=== PATIENT | male | born 1975 | race Caucasian/White ===

== ENCOUNTER 2017-09-30 12:44 | Observation (INO) | payer BC ==
--- NOTE | 2017-09-30 13:20 | ER ---
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 Transition of care: patient was not received from another setting of care. Onset of symptoms was September 30, 2017. Care prior to arrival: None. 12:48 Method Of Arrival: Ambulatory 12:48 Acuity: JOSTIN 3 hj Triage Assessment: 12:51 General: Appears in no apparent distress. uncomfortable, Behavior is calm, cooperative, hj appropriate for age. Pain: Complains of pain in anterior aspect of left upper chest Pain radiates to left arm. Cardiovascular: Reports chest pain, Capillary refill < 3 seconds Patient's skin is warm and dry. Historical: - Allergies: 12:51 No Known Allergies; hj - Home Meds: 12:51 None [Active]; hj - PMHx: 12:51 None; hj - PSHx: 12:51 finger surgery; hj - Immunization history:: Adult Immunizations up to date. - Family history:: not pertinent. - Social history:: Smoking status: Patient/guardian denies using tobacco, never smoked. Screenin:18 Abuse screen: Denies threats or abuse. Nutritional screening: No deficits noted. tl3 Tuberculosis screening: No symptoms or risk factors identified. Fall Risk None identified. Assessment: 12:52 Pain: Pain began 1 day ago. hj 13:05 Reassessment: pt to rm 24, Dr Abel at bedside for assessment. tl3 13:30 General: Appears in no apparent distress. comfortable, slender, well groomed, well tl3 developed, well nourished, Behavior is calm, cooperative, appropriate for age. Pain: Complains of pain in left clavicle and left arm and chest and anterior aspect of left upper chest Pain currently is 6 out of 10 on a pain scale. Pain: Pain Pain began 1 day ago. Pain: Complains of pain in left arm and anterior aspect of left upper chest Pain currently is 6 out of 10 on a pain scale. Pain began 3 weeks ago. Neuro: No deficits noted. Level of Consciousness is awake, alert, obeys commands, Oriented to person, place, time, situation. Neuro: Cardiovascular: Heart tones S1 S2 present Capillary refill < 3 seconds in bilateral fingers. Respiratory: Airway is patent Trachea midline Breath sounds are clear bilaterally. GI: No signs and/or symptoms were reported involving the gastrointestinal system. : No signs and/or symptoms were reported regarding the genitourinary system. EENT: No signs and/or symptoms were reported regarding the EENT system. Derm: No signs and/or symptoms reported regarding the dermatologic system. 16:50 Reassessment: Patient appears in no apparent distress at this time. No changes from tl3 previously documented assessment. Patient and/or family updated on plan of care and expected duration. Pain level reassessed. Patient is alert, oriented x 3, equal unlabored respirations, skin warm/dry/pink. Vital Signs: 12:52 BP 152 / 93; Pulse 56; Resp 18; Temp 97.9(TE); Pulse Ox 98% on R/A; Weight 104.33 kg; hj Height 5 ft. 11 in. (180.34 cm); Pain 2/10; 13:30 BP 140 / 90; Pulse 71; Resp 16; Pulse Ox 100% on R/A; tl3 14:18 BP 134 / 97; Pulse 62; Resp 18; Pulse Ox 100% on R/A; tl3 16:50 BP 137 / 93; Pulse 67; Resp 18; Pulse Ox 96% ; tl3 12:52 Body Mass Index 32.08 (104.33 kg, 180.34 cm) ED Course: 12:48 Patient arrived in ED. mr 12:51 Triage completed. hj 12:52 Arm band placed on left wrist. hj 12:52 Patient maintains SpO2 saturation greater than 95% on room air. hj 12:58 Rian Abel MD is Attending Physician. job 13:04 Misa Hinkle, POLLY is Primary Nurse. tl3 13:09 EKG done, by instructional design technologist. reviewed by Rian Abel MD. at1 13:19 Cyn Riddle MD is Hospitalizing Provider. job 13:29 XRAY Chest (1 view) In Process Unspecified. EDMS 13:30 No apparent distress. Awaiting bed assignment. tl3 13:30 Initial lab(s) drawn, by me, sent to lab. Inserted saline lock: 22 gauge in right tl3 antecubital area, using aseptic technique. Blood collected. 13:32 X-ray completed. Portable x-ray completed in exam room. Patient tolerated procedure mh1 well. 14:18 Patient has correct armband on for positive identification. Placed in gown. Bed in low tl3 position. Call light in reach. Side rails up X 1. Pulse ox on. NIBP on. Warm blanket given. 14:36 Echo with Doppler Sent. tl3 15:11 No provider procedures requiring assistance completed. tl3 15:25 Echocardiogram with Doppler done by calibration technician. tc 16:50 Inserted Patient admitted, IV remains in place. tl3 Administered Medications: 13:30 Drug: Aspirin Chewable Tablet 324 mg Route: PO; tl3 17:14 Follow up: Response: No adverse reaction tl3 13:30 Drug: Lisinopril 10 mg Route: PO; tl3 17:14 Follow up: Response: No adverse reaction tl3 15:27 Drug: NS 0.9% 1000 ml Route: IV; Rate: 125 ml/hr; Site: right antecubital; Delivery: tl3 Primary tubing; 15:28 Drug: Lovenox 1 mg/kg Route: Sub-Q; Site: abdomen; tl3 17:15 Follow up: Response: No adverse reaction tl3 15:28 Drug: Pepcid 20 mg Route: IVP; Infused Over: 2 mins; Site: right antecubital; tl3 17:15 Follow up: Response: No adverse reaction tl3 Outcome: 13:19 Decision to Hospitalize by Provider. job 16:50 Admitted to Tele accompanied by tech, room 401, with chart, Report called to POLLY Gongora tl3 17:14 Condition: stable tl3 17:16 Patient left the ED. tl3 Signatures: Dispatcher [employer] EDMS Rian Abel MD MD cha Rivera, Maria Cayetano Uriasha mh1 Chrissie rome, curator herbarium EKG Tat1 Janette Mays, curator herbarium EKG Ttc Dani, Rolan, RN RN hj [place], Misa, RN RN tl3 Corrections: (The following items were deleted from the chart) 12:54 12:52 Pulse 56bpm; Resp 18bpm; Pulse Ox 98% RA; Temp 97.9F Temporal; 104.33 kg; Height hj 5 ft. 11 in.; BMI: 32.0; Pain 2/10; hj 14:34 14:18 Immunization history: Adult Immunizations up to date, tl3 tl3 14:34 14:18 Social history: Smoking status: Patient uses tobacco products, smokes one pack tl3 cigarettes per day. Patient uses alcohol, states that he is trying to quit. tl3 14:34 14:18 General: Appears distressed, uncomfortable, slender, well groomed, well tl3 developed, Behavior is calm, cooperative, appropriate for age, tl3 14:34 14:18 Pain: Complains of pain in left breast and left clavicle and left arm and chest tl3 and anterior aspect of left upper chest Pain currently is 10 out of 10 on a pain scale. Quality of pain is described as sharp, tl3 14:34 14:18 Neuro: Level of Consciousness is awake, alert, obeys commands, Oriented to tl3 person, place, time, situation, Appropriate for age tl3 14:34 14:18 Cardiovascular: Heart tones S1 S2 present Capillary refill < 3 seconds in tl3 bilateral fingers tl3 14:34 14:18 Pain: tl3 tl3 14:34 14:18 Respiratory: Airway is patent Trachea midline Respiratory effort is even, tl3 unlabored, Respiratory pattern is regular, symmetrical, Breath sounds are clear bilaterally. tl3 14:34 14:18 GI: Bowel sounds present X 4 quads. hyperactive in right upper quadrant, left tl3 upper quadrant, right lower quadrant and left lower quadrant tl3 14:34 14:18 : No signs and/or symptoms were reported regarding the genitourinary system. tl3tl3 14:34 14:18 EENT: No signs and/or symptoms were reported regarding the EENT system. tl3 tl3 14:34 14:18 Derm: No signs and/or symptoms reported regarding the dermatologic system. tl3 tl3 14:35 14:18 No provider procedures requiring assistance completed. tl3 tl3 14:35 14:18 Inserted saline lock: 22 gauge in right antecubital area, using aseptic tl3 technique. tl3 14:35 14:18 Patient maintains SpO2 saturation greater than 95% on room air. tl3 tl3
--- NOTE | 2017-09-30 13:20 | EDPHYS ---
Physician Documentation [facility] Name: Ralf Crowley Age: 41 yrs Sex: Male : 1975 Arrival Date: 09/30/2017 Time: 12:48 Bed 24 Private MD: ED Physician Rian Abel HPI: 09/30 13:15 This 41 yrs old Male presents to ER via Ambulatory with complaints of Chest job Pain, Arm Pain. 13:15 The patient or guardian reports chest pain that is located primarily in the substernal job area, anterior chest wall. The pain radiates to the left shoulder. Associated signs and symptoms: The patient has no apparent associated signs or symptoms. The chest pain is described as a pressure. Modifying factors: The symptoms are alleviated by nothing. Severity of pain: At its worst the pain was mild moderate in the emergency department the pain is unchanged. The patient has not experienced similar symptoms in the past. Historical: - Allergies: 12:51 No Known Allergies; hj - Home Meds: 12:51 None [Active]; hj - PMHx: 12:51 None; hj - PSHx: 12:51 finger surgery; hj - Immunization history:: Adult Immunizations up to date. - Family history:: not pertinent. - Social history:: Smoking status: Patient/guardian denies using tobacco, never smoked. ROS: 13:15 Constitutional: Negative for fever, chills, and weight loss, Eyes: Negative for injury, job pain, redness, and discharge, ENT: Negative for injury, pain, and discharge, Neck: Negative for injury, pain, and swelling, Respiratory: Negative for shortness of breath, cough, wheezing, and pleuritic chest pain, Abdomen/GI: Negative for abdominal pain, nausea, vomiting, diarrhea, and constipation, Back: Negative for injury and pain, : Negative for injury, bleeding, discharge, and swelling, MS/Extremity: Negative for injury and deformity, Skin: Negative for injury, rash, and discoloration, Neuro: Negative for headache, weakness, numbness, tingling, and seizure, Psych: Negative for depression, anxiety, suicide ideation, homicidal ideation, and hallucinations, Allergy/Immunology: Negative for hives, rash, and allergies, Endocrine: Negative for neck swelling, polydipsia, polyuria, polyphagia, and marked weight changes, Hematologic/Lymphatic: Negative for swollen nodes, abnormal bleeding, and unusual bruising. 13:15 Cardiovascular: Positive for chest pain, of the left clavicle, anterior aspect of left upper chest and left breast. Exam: 13:15 Constitutional: This is a well developed, well nourished patient who is awake, alert, job and in no acute distress. Head/Face: Normocephalic, atraumatic. Eyes: Pupils equal round and reactive to light, extra-ocular motions intact. Lids and lashes normal. Conjunctiva and sclera are non-icteric and not injected. Cornea within normal limits. Periorbital areas with no swelling, redness, or edema. ENT: Nares patent. No nasal discharge, no septal abnormalities noted. Tympanic membranes are normal and external auditory canals are clear. Oropharynx with no redness, swelling, or masses, exudates, or evidence of obstruction, uvula midline. Mucous membranes moist. Neck: Trachea midline, no thyromegaly or masses palpated, and no cervical lymphadenopathy. Supple, full range of motion without nuchal rigidity, or vertebral point tenderness. No Meningismus. Chest/axilla: Normal chest wall appearance and motion. Nontender with no deformity. No lesions are appreciated. Cardiovascular: Regular rate and rhythm with a normal S1 and S2. No gallops, murmurs, or rubs. Normal PMI, no JVD. No pulse deficits. Respiratory: Lungs have equal breath sounds bilaterally, clear to auscultation and percussion. No rales, rhonchi or wheezes noted. No increased work of breathing, no retractions or nasal flaring. Abdomen/GI: Soft, non-tender, with normal bowel sounds. No distension or tympany. No guarding or rebound. No evidence of tenderness throughout. Back: No spinal tenderness. No costovertebral tenderness. Full range of motion. Male : Normal genitalia with no discharge or lesions. Skin: Warm, dry with normal turgor. Normal color with no rashes, no lesions, and no evidence of cellulitis. Neuro: Awake and alert, GCS 15, oriented to person, place, time, and situation. Cranial nerves II-XII grossly intact. Motor strength 5/5 in all extremities. Sensory grossly intact. Cerebellar exam normal. Normal gait. Psych: Awake, alert, with orientation to person, place and time. Behavior, mood, and affect are within normal limits. Vital Signs: 12:52 BP 152 / 93; Pulse 56; Resp 18; Temp 97.9(TE); Pulse Ox 98% on R/A; Weight 104.33 kg; hj Height 5 ft. 11 in. (180.34 cm); Pain 2/10; 13:30 BP 140 / 90; Pulse 71; Resp 16; Pulse Ox 100% on R/A; tl3 14:18 BP 134 / 97; Pulse 62; Resp 18; Pulse Ox 100% on R/A; tl3 16:50 BP 137 / 93; Pulse 67; Resp 18; Pulse Ox 96% ; tl3 12:52 Body Mass Index 32.08 (104.33 kg, 180.34 cm) hj MDM: 12:58 Patient medically screened. [facility] 13:29 Data reviewed: vital signs, nurses notes, lab test result(s), EKG, radiologic studies. [facility] 09/30 13:15 Order name: Basic Metabolic Panel [facility] 09/30 13:15 Order name: BNP [facility] 09/30 13:15 Order name: CBC with Diff [facility] 09/30 13:15 Order name: Ckmb [facility] 09/30 13:15 Order name: CPK [facility] 09/30 13:15 Order name: LFT's [facility] 09/30 13:15 Order name: Magnesium [facility] 09/30 13:15 Order name: PT-INR [facility] 09/30 13:15 Order name: Ptt, Activated [facility] 09/30 13:15 Order name: Troponin (emerg Dept Use Only) [facility] 09/30 13:15 Order name: XRAY Chest (1 view) [facility] 09/30 13:15 Order name: D-Dimer [facility] 09/30 13:15 Order name: Lipase [facility] 09/30 16:32 Order name: Thyroid Stimulating Hormone [facility] 09/30 12:55 Order name: EKG; Complete Time: 12:55 09/30 13:15 Order name: Cardiac monitoring; Complete Time: 14:36 [facility] 09/30 13:15 Order name: EKG - Nurse/Tech; Complete Time: 14:36 [facility] 09/30 13:15 Order name: IV Saline Lock; Complete Time: 14:36 [facility] 09/30 13:15 Order name: Labs collected and sent; Complete Time: 14:37 [facility] 09/30 13:15 Order name: O2 Per Protocol; Complete Time: 14:37 [facility] 09/30 13:15 Order name: O2 Sat Monitoring; Complete Time: 14:37 [facility] 09/30 13:15 Order name: Urine Dipstick-Ancillary (obtain specimen); Complete Time: 14:37 [facility] 09/30 13:29 Order name: CONS Physician Consult [facility] 09/30 13:29 Order name: Echo with Doppler [facility] 09/30 15:55 Order name: Labs - recollect needed; Complete Time: 16:42 iw Administered Medications: 13:30 Drug: Aspirin Chewable Tablet 324 mg Route: PO; tl3 17:14 Follow up: Response: No adverse reaction tl3 13:30 Drug: Lisinopril 10 mg Route: PO; tl3 17:14 Follow up: Response: No adverse reaction tl3 15:27 Drug: NS 0.9% 1000 ml Route: IV; Rate: 125 ml/hr; Site: right antecubital; Delivery: tl3 Primary tubing; 15:28 Drug: Lovenox 1 mg/kg Route: Sub-Q; Site: abdomen; tl3 17:15 Follow up: Response: No adverse reaction tl3 15:28 Drug: Pepcid 20 mg Route: IVP; Infused Over: 2 mins; Site: right antecubital; tl3 17:15 Follow up: Response: No adverse reaction tl3 Disposition: 09/30/17 13:19 Hospitalization ordered by Cyn Riddle for Observation. Preliminary diagnosis are Chest pain, unspecified, Essential (primary) hypertension. - Bed requested for Telemetry/MedSurg (observation). - Status is Observation. tl3 - Condition is Stable. - Problem is new. - Symptoms have improved. UTI on Admission? No Signatures: Dispatcher [employer] [facility] Rian Abel MD MD cha Williams, Irene, RN RN iw Joaquin, Henry, RN RN hj Fitzgerald, Diane, RN RN df Lowrey, Tammy, RN RN tl3 Corrections: (The following items were deleted from the chart) 14:34 14:18 Immunization history: Adult Immunizations up to date, tl3 tl3 14:34 14:18 Social history: Smoking status: Patient uses tobacco products, smokes one pack tl3 cigarettes per day. Patient uses alcohol, states that he is trying to quit. tl3
[2017-09-30] MEDS ORDERED: NA CHLORIDE 0.9% 1,000 ML ONE (14:09)
[2017-09-30] MEDS ORDERED: ASPIRIN 81 MG CHEWABLE TABLET ONE (14:09)
[2017-09-30] MEDS ORDERED: LISINOPRIL 10 MG TAB ONE (14:09)
[2017-09-30] MEDS ORDERED: ENOXAPARIN 100 MG/ML SYR SQ ONE (14:09)
[2017-09-30] MEDS ORDERED: FAMOTIDINE 20 MG/2 ML VIAL IV ONE (14:09)
--- NOTE | 2017-09-30 14:13 | EKG ---
Test Date: 2017-09-30 Test Time: 13:01:54 E Merchant: ERIC MEASUREMENT RESULTS: Intervals: Rate: 51 HI: 170 QRSD: 116 QT: 422 QTc: 388 Graham: P: 34 HI: 170 QRS: -11 T: 24 INTERPRETIVE STATEMENTS: Sinus bradycardia Left ventricular hypertrophy with QRS widening Abnormal ECG Compared to ECG 01/28/2016 20:59:44 No significant changes Electronically Signed On 09-30-17 14:12:25 CDT by Timbo Galeana
--- NOTE | 2017-09-30 14:15 | RAD REPORT ---
EXAM DESCRIPTION: RAD - Chest Single View - 09/30/2017 1:29 pm CLINICAL HISTORY: Chest pain for 1 week COMPARISON: None. TECHNIQUE: AP portable chest image was obtained 1322 hours . FINDINGS: Lungs are clear. Heart size is upper normal. No vascular engorgement. Trachea is midline. No measurable pleural effusion and no pneumothorax. No gross bony abnormality seen. No acute aortic f indings suspected. IMPRESSION: Borderline cardiomegaly with no acute failure or volume overload finding. No acute lung parenchymal process.
[2017-09-30] MEDS ORDERED: ACETAMINOPHEN 500 MG TAB PO PRN (14:20)
[2017-09-30] MEDS ORDERED: ONDANSETRON 4 MG (ODT) TAB PO PRN (14:20)
[2017-09-30 15:38] LABS: Absolute Lymphocytes (CBC) 1.6 K/uL (0.7-4.9); Absolute Monocytes 0.4 K/uL (0.1-1.3); Absolute Neutrophil 4.4 K/uL (1.8-8.0); Basophils % 0.4 % (0-1.3); Eosinophils % 1.6 % (0-4.4); Hematocrit 45.5 % (39.6-49.0); Lymphocytes % 25.2 % (15.3-44.8); MCH 29.3 pg (27.0-35.0); MCV 84.5 fL (80-100); MPV 7.8 fL (7.6-11.3); Monocytes % 5.9 % (3.3-12.3); RBC Red Blood Cell Count 5.38 M/uL (4.33-5.43)
[2017-09-30 15:54] LABS: Bicarbonate 29 mEq/L (21-31); Glucose Level 88 mg/dL (65-120); Lipase 19 U/L (22-51); Potassium 3.6 mEq/L (3.6-5.0); Sodium Level 138 mEq/L (135-145)
[2017-09-30 16:00] LABS: ALT/SGPT 27 IU/L (10-60); AST/SGOT 26 IU/L (10-42); Albumin 5.3 g/dL (3.2-5.5); Alkaline Phosphatase 58 IU/L (42-121); BUN Blood Urea Nitrogen 16 mg/dL (6-20); Bilirubin Direct 0.1 mg/dL (0-0.2); Bilirubin Total 0.9 mg/dL (0.3-1.2); Creatine Phosphokinase 89 IU/L (22-269); Glomerular Filtration Rate > 90 mL/min (=/>90); Magnesium 2.1 mg/dL (1.8-2.5); Protein, Total 8.2 g/dL (6.0-8.3)
[2017-09-30 16:02] LABS: CKMB Creatine Kinase MB 1.5 ng/ml (0.3-4.0)
--- NOTE | 2017-09-30 16:40 | ECHO ---
HEIGHT: ft in WEIGHT: lb oz DATE OF STUDY: 09/30/[address]: Rian Abel MD 2-DIMENSIONAL: YES M.MODE: YES DOPPLER: YES COLOR FLOW: YES TDS: PORTABLE: DEFINITY: BUBBLE STUDY: DIAGNOSIS: CHEST PAIN CARDIAC HISTORY: CATHERIZATION: NO SURGERY: NO PROSTHETIC VALVE: NO PACEMAKER: NO MEASUREMENTS (cm) DIASTOLIC (NORMALS) SYSTOLIC (NORMALS) IVSd 0.9 (0.6-1.2) LA Diam 3.6 (1.9-4.0) LVEF 68% LVIDd 5.4 (3.5-5.7) LVIDs 3.3 (2.0-3.5) %FS 38% LVPWd 1.1 (0.6-1.2) Ao Diam 3.4 (2.0-3.7) 2 DIMENSIONAL ASSESSMENT: RIGHT ATRIUM: NORMAL LEFT ATRIUM: NORMAL RIGHT VENTRICLE: NORMAL LEFT VENTRICLE: NORMAL TRICUSPID VALVE: NORMAL MITRAL VALVE: NORMAL PULMONIC VALVE: NORMAL AORTIC VALVE: NORMAL PERICARDIAL EFFUSION: NONE AORTIC ROOT: NORMAL LEFT VENTRICULAR WALL MOTION: NORMAL DOPPLER/COLOR FLOW: NORMAL COMMENTS: NORMAL 2-DIMENSIONAL ECHOCARIOGRAM WITH DOPPLER. TECHNOLOGIST: JOSEPH DAWSON
[2017-09-30 16:56] LABS: Protime INR 1.05
[2017-09-30 17:23] VITALS: BMI 32.1
[2017-09-30] MEDS ORDERED: POTASSIUM 25 MEQ EFFERV TAB PO ONE (18:15)
[2017-09-30 19:10] LABS: Urine Appearance CLEAR; Urine Bilirubin NEGATIVE (NEG); Urine Blood NEGATIVE (NEG); Urine Color YELLOW; Urine Glucose NEGATIVE (NEG); Urine Protein NEGATIVE (NEG); Urine Specific Gravity 1.015 (1.005-1.030); Urine Urobilinogen 0.2 mg/dL (0.2-1.0)
--- NOTE | 2017-09-30 19:17 | P.HP ---
Certification for Inpatient Patient admitted to: Observation With expected LOS: <2 Midnights Patient will require the following post-hospital care: None Practitioner: I am a practitioner with admitting privileges, knowledge of patient current condition, hospital course, and medical plan of care. Services: Services provided to patient in accordance with Admission requirements found in Title 42 Section 412.3 of the Code of Federal Regulations Patient History Date of Service: 09/30/17 Primary Care Provider: None Reason for admission: Chest Pain History of Present Illness: This is a 41-year-old male with no significant past medical history presented to the ED complaining of having some chest pain. Patient stated that the chest pain was on the left-hand side and was radiating to the back and down his left arm. He also had symptoms of tingling down his left arm. Patient stated that he was resting at home when the pain started all of a sudden in the progressively worse. Patient stated that he has not had any symptoms like this happen to him before and this is the 1st time. Patient stated that the pain was more pressure like when it initially started but now has resolved. Patient states that he thinks that he pulled a muscle while driving his car. Patient stated that he was driving 12 hr before his chest pain started. No other associated symptoms were noted no shortness of breath fever chills nausea vomiting was noted at this time. Allergies No Known Allergies Allergy (Unverified 01/28/16 21:15) - Past Medical/Surgical History Diabetic: No -: Finger surgery for infection L 2nd phalange - Family History Dad -: Heart disease Notes: triple bypass - Social History Smoking Status: Never smoker Alcohol use: Yes Caffeine use: Yes Place of Residence: Home Review of Systems 10-point ROS is otherwise unremarkable Physical Examination - Vital Signs Temperature: 98.6 F Blood Pressure: 137/93 Pulse: 67 Respirations: 18 Pulse Ox (%): 96 - Physical Exam General: Alert, In no apparent distress, Oriented x3 HEENT: Atraumatic, PERRLA, Mucous membr. moist/pink, EOMI, Sclerae nonicteric Neck: Supple, 2+ carotid pulse no bruit, No LAD, Without JVD or thyroid abnormality Respiratory: Clear to auscultation bilaterally, Normal air movement Cardiovascular: Regular rate/rhythm, Normal S1 S2 Gastrointestinal: Normal bowel sounds, No tenderness Musculoskeletal: No tenderness Integumentary: No rashes Neurological: Normal gait, Normal speech, Normal strength at 5/5 x4 extr, Normal tone, Normal affect Lymphatics: No axilla or inguinal lymphadenopathy Assessment and Plan - Problems (Diagnosis) (1) Atypical chest pain Current Visit: Yes Status: Acute Plan: Most Likely Musculoskeletal Pain. -EKG and troponin negative. -Cardiology consulted. -Treadmill test ordered for alva -DC in 24 hrs. Discharge Plan: Home Plan to discharge in: 24 Hours - Advance Directives Does patient have a Living Will: No Does patient have a Durable POA for Healthcare: No
[2017-09-30 19:32] LABS: Urine Microscopic Reflex NO UMIC
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
[2017-10-01 06:04] LABS: Absolute Lymphocytes (CBC) 2.1 K/uL (0.7-4.9); Absolute Monocytes 0.4 K/uL (0.1-1.3); Absolute Neutrophil 3.1 K/uL (1.8-8.0); Basophils % 0.9 % (0-1.3); Eosinophils % 2.4 % (0-4.4); Hematocrit 42.4 % (39.6-49.0); MCH 29.3 pg (27.0-35.0); MCV 85.8 fL (80-100); MPV 7.9 fL (7.6-11.3); Monocytes % 7.2 % (3.3-12.3); RBC Red Blood Cell Count 4.95 M/uL (4.33-5.43)
[2017-10-01 06:33] LABS: ALT/SGPT 23 IU/L (10-60); AST/SGOT 22 IU/L (10-42); Albumin 4.3 g/dL (3.2-5.5); Alkaline Phosphatase 47 IU/L (42-121); BUN Blood Urea Nitrogen 19 mg/dL (6-20); Bicarbonate 28 mEq/L (21-31); Bilirubin Total 0.9 mg/dL (0.3-1.2); Glomerular Filtration Rate > 90 mL/min (=/>90); Glucose Level 97 mg/dL (65-120); HDL Cholesterol 32 mg/dL (27-67); LDL Cholesterol, Calculated 97 (<130); Potassium 4.5 mEq/L (3.6-5.0); Protein, Total 6.7 g/dL (6.0-8.3); Sodium Level 138 mEq/L (135-145)
[2017-10-01 08:57] VITALS: O2SAT 97
--- NOTE | 2017-10-01 11:15 | TREADMILL ---
70% H.R.: 127 85% H.R.: 154 90% H.R.: 163 100% H.R.: 181 DX: CHEST PAIN, ABNORMAL EKG Date of Study: 10/01/2017 Ht: 5' 11 " Wt: 230 lb 0 oz Consulting Physician: BRITTANY MEDICATIONS: TYLENOL, ZOFRAN HISTORY: 41 YEAR OLD MALE CHEST PAIN WITH ABNORMAL EKG. PHYSICIAL EXAMINATION: RESTING B.P.: 137/87 RESTING H.R.: 78 RESTING EKG: PROTOCOL: JERILYN CARDIOLITE EXERCISE TIME: 10:18 MAXIMUM HEART RATE: 166 % OF PREDICTED B.P. AT PEAK STRESS: 175/92 161/90 H.R. AT 1 MINUTE POST EXERCISE: 139 IMPRESSION: MYOVIEW STRESS TEST PERFORMED. STOPPED FOR TARGET HEART RATE. CARDIOLITE INJECTED PER PROTOCOL. NO ARRHYTHMIAS NOTED. DENIES ANY CHEST PAIN. SEE NUCLEAR MEDICINE REPORT.
--- NOTE | 2017-10-01 11:33 | RAD REPORT ---
EXAM DESCRIPTION: NM - Rest Stress Cardiac Imaging - 10/01/2017 11:22 am CLINICAL HISTORY: Chest pain COMPARISON: None. TECHNIQUE: The patient was administered 11 mCi of Tc 99m Sestamibi prior to resting SPECT imaging of the heart. The patient was then administered 31.2 mCi of Tc 99m Sestamibi following exercise or phar macologic stress. Multiplanar SPECT images were reviewed. FINDINGS: The end diastolic volume is 146 ml, the end systolic volume is 57 ml, and the ejection fra ction is 61 %. No stress-induced ischemic changes are identifiable. Slight decrease in activity along the inferior w all does not change between rest and stress imaging. This is more likely diaphragmatic artifact than scarring. Inferior wall defect favored to be diaphragmatic artifact rather than scarring. Thinning a t the apex noted and not regarded as significant. IMPRESSION: No stress-induced ischemic change. Ventricular volume is enlarged at 146 mL. Ejection fraction is normal at 61%.
[2017-10-01 11:53] VITALS: BP 97/68; TEMP 98.6
--- NOTE | 2017-10-01 13:22 | P.DS ---
Admission Date: 09/30/17 Discharge Date: 10/01/17 Primary Care Provider: None Disposition: ROUTINE DISCHARGE Reason for Admission: Chest Pain Consultations: Cardiology Procedures: Treadmill Exercise Test - Problems (1) Atypical chest pain Onset Date: 10/01/17 Status: Acute Brief History of Present Illness: This is a 41-year-old male with no significant past medical history presented to the ED complaining of having some chest pain. Patient stated that the chest pain was on the left-hand side and was radiating to the back and down his left arm. He also had symptoms of tingling down his left arm. Patient stated that he was resting at home when the pain started all of a sudden in the progressively worse. Patient stated that he has not had any symptoms like this happen to him before and this is the 1st time. Patient stated that the pain was more pressure like when it initially started but now has resolved. Patient states that he thinks that he pulled a muscle while driving his car. Patient stated that he was driving 12 hr before his chest pain started. No other associated symptoms were noted no shortness of breath fever chills nausea vomiting was noted at this time. Hospital Course: Overall pt remained stable. pt was admitted to the hospital for Chest Pain. Had an Treadmill stress test which was negative for ischemia. Pt was thus discharge home under stable condition. Vital Signs/Physical Exam: Temp Pulse Resp BP Pulse Ox 98.6 F 90 16 97/68 96 10/01/17 11:52 10/01/17 11:52 10/01/17 11:52 10/01/17 11:52 10/01/17 11:52 General: Alert, In no apparent distress, Oriented x3 HEENT: Atraumatic, PERRLA, EOMI Neck: Supple, JVD not distended Respiratory: Clear to auscultation bilaterally, Normal air movement Cardiovascular: Regular rate/rhythm, Normal S1 S2 Gastrointestinal: Normal bowel sounds, No tenderness Musculoskeletal: No tenderness Integumentary: No rashes Neurological: Normal speech, Normal tone, Normal affect Lymphatics: No axilla or inguinal lymphadenopathy Laboratory Data at Discharge: WBC 5.8 K/uL (4.3-10.9) 10/01/17 05:17 Hgb 14.5 g/dL (13.6-17.9) 10/01/17 05:17 Hct 42.4 % (39.6-49.0) 10/01/17 05:17 Plt Count 212 K/uL (152-406) 10/01/17 05:17 PT 12.4 SECONDS (9.5-12.5) 09/30/17 16:35 INR 1.05 09/30/17 16:35 APTT 35.5 SECONDS (24.3-36.9) 09/30/17 16:35 Sodium 138 mEq/L (135-145) 10/01/17 05:17 Potassium 4.5 mEq/L (3.6-5.0) 10/01/17 05:17 BUN 19 mg/dL (6-20) 10/01/17 05:17 Creatinine 0.93 mg/dL (0.61-1.24) 10/01/17 05:17 Glucose 97 mg/dL (65-120) 10/01/17 05:17 Magnesium 2.1 mg/dL (1.8-2.5) 09/30/17 14:50 Total Bilirubin 0.9 mg/dL (0.3-1.2) 10/01/17 05:17 AST 22 IU/L (10-42) 10/01/17 05:17 ALT 23 IU/L (10-60) 10/01/17 05:17 Alkaline Phosphatase 47 IU/L (42-121) 10/01/17 05:17 Troponin I < 0.03 ng/mL (<0.03) 10/01/17 05:17 B-Natriuretic Peptide 13 pg/ml (<=100) 09/30/17 14:50 Triglycerides 214 mg/dL (35-160) H 10/01/17 05:17 Cholesterol 172 mg/dL (<200) 10/01/17 05:17 HDL Cholesterol 32 mg/dL (27-67) 10/01/17 05:17 Cholesterol/HDL Ratio 5.38 10/01/17 05:17 Lipase 19 U/L (22-51) L 09/30/17 14:50 Home Medications: NK [No Home Meds] 10/01/17 Followup: Darron Shetty DO [Primary Care Provider] -
--- NOTE | 2017-10-02 02:15 | PN ---
Date of Progress Note: 10/01/2017 Mr. Crowley was admitted by Dr. Riddle, seen by Dr. Galeana for chest pain. Stress test was done today wi Cardiolite. The patient tolerated the procedure well. He had no chest pain. No EKG changes. No rmal blood pressure response. No arrhythmia. Cardiolite part of the stress test was normal. The pa abdelrahman can go home whenever it is okay with Dr. Riddle. DONALD/NAOMY Voice ID: [id number] Report ID: [id number]
== END 2017-10-01 12:14 | disposition home or self-care (01) ==
LOC: ER 12:44 → ERHOLD 13:21 → INTOOBSV 13:21 → 4TH 16:56
PROVIDERS: ADMIT Family Medicine; ATTEND Family Medicine
DX: R07.89 Other chest pain (principal)
CPT/HCPCS: 36415; 71045; 78452; 80048; 80053; 80061; 80076; 81003; 82550; 82553; 83690; 83735; 83880; 84443; 84484; 85025; 85379; 85610; 85730; 93005; 93017; 93306; 96372; 96374; 99285; A9500; G0378; J1650; J7030

== ENCOUNTER 2021-06-14 04:02 | Observation (INO) | payer BC ==
[2021-06-14] MEDS ORDERED: MORPHINE 4 MG/ML SYR ONE ×2 (04:29→11:24)
[2021-06-14] MEDS ORDERED: NA CHLORIDE 0.9% 1,000 ML ONE (04:30)
[2021-06-14] MEDS ORDERED: ONDANSETRON 4 MG/2 ML VIAL ONE ×2 (04:30→09:00)
[2021-06-14 05:04] LABS: Urine Blood Negative (Negative); Urine Glucose Negative (Negative); Urine Protein Negative (Negative); Urine Specific Gravity 1.025 (1.005-1.030)
[2021-06-14 05:05] LABS: Absolute Lymphocytes (CBC) 1.5 K/uL (0.7-4.9); Hematocrit 43.4 % (39.6-49.0); Lymphocytes % 16.5 % (15.3-44.8); MPV 7.6 fL (7.6-11.3); RBC Red Blood Cell Count 5.02 M/uL (4.33-5.43)
[2021-06-14 05:21] LABS: Albumin 4.2 g/dL (3.4-5.0); Bilirubin Direct 0.2 mg/dL (0-0.2); Bilirubin Total 0.7 mg/dL (0.2-1.0); Potassium 4.2 mmol/L (3.5-5.1)
--- NOTE | 2021-06-14 06:45 | EDPHYS ---
Physician Documentation [facility] Name: Ralf Crowley Age: 45 yrs Sex: Male : 1975 Arrival Date: 06/14/2021 Time: 04:05 Bed 13 Private MD: ED Physician Boris Diallo HPI: 06/14 04:38 This 45 yrs old Male presents to ER via Ambulatory with complaints of Abdominal Pain, mh7 Flank Pain. 04:38 The patient complains of pain in the right flank. The pain radiates to the Abdomen. mh7 Onset: The symptoms/episode began/occurred 3 day(s) ago. Modifying factors: The symptoms are alleviated by nothing. the symptoms are aggravated by nothing. Associated signs and symptoms: Pertinent negatives: diarrhea, dizziness, dysuria, fever, urinary frequency, headache, hematuria, nausea, pain radiating to the lower extremities, vomiting. Severity of pain: At its worst the pain was moderate last night, in the emergency department the pain is unchanged. Historical: - Allergies: 04:11 No Known Allergies; la1 - Home Meds: 04:11 Lisinopril Oral [Active]; Propranolol Oral [Active]; la1 - PMHx: 04:17 Hypertensive disorder; la1 - Immunization history:: Client reports receiving the 2nd dose of the Covid vaccine. - Social history:: Smoking status: Patient denies any tobacco usage or history of. ROS: 04:38 Constitutional: Negative for fever, chills, and weight loss, Eyes: Negative for injury, mh7 pain, redness, and discharge, ENT: Negative for injury, pain, and discharge, Neck: Negative for injury, pain, and swelling, Cardiovascular: Negative for chest pain, palpitations, and edema, Respiratory: Negative for shortness of breath, cough, wheezing, and pleuritic chest pain, : Negative for injury, bleeding, discharge, and swelling, MS/Extremity: Negative for injury and deformity, Skin: Negative for injury, rash, and discoloration, Neuro: Negative for headache, weakness, numbness, tingling, and seizure, Psych: Negative for depression, anxiety, suicide ideation, homicidal ideation, and hallucinations, Allergy/Immunology: Negative for hives, rash, and allergies, Endocrine: Negative for neck swelling, polydipsia, polyuria, polyphagia, and marked weight changes, Hematologic/Lymphatic: Negative for swollen nodes, abnormal bleeding, and unusual bruising. Exam: 04:38 Constitutional: This is a well developed, well nourished patient who is awake, alert, mh7 and in no acute distress. Head/Face: Normocephalic, atraumatic. Eyes: Pupils equal round and reactive to light, extra-ocular motions intact. Lids and lashes normal. Conjunctiva and sclera are non-icteric and not injected. Cornea within normal limits. Periorbital areas with no swelling, redness, or edema. Neck: Trachea midline, no thyromegaly or masses palpated, and no cervical lymphadenopathy. Supple, full range of motion without nuchal rigidity, or vertebral point tenderness. No Meningismus. Chest/axilla: Normal chest wall appearance and motion. Nontender with no deformity. No lesions are appreciated. Cardiovascular: Regular rate and rhythm with a normal S1 and S2. No gallops, murmurs, or rubs. Normal PMI, no JVD. No pulse deficits. Respiratory: Lungs have equal breath sounds bilaterally, clear to auscultation and percussion. No rales, rhonchi or wheezes noted. No increased work of breathing, no retractions or nasal flaring. 04:38 Skin: Warm, dry with normal turgor. Normal color with no rashes, no lesions, and no evidence of cellulitis. MS/ Extremity: Pulses equal, no cyanosis. Neurovascular intact. Full, normal range of motion. Neuro: Awake and alert, GCS 15, oriented to person, place, time, and situation. Cranial nerves II-XII grossly intact. Motor strength 5/5 in all extremities. Sensory grossly intact. Cerebellar exam normal. Normal gait. Psych: Awake, alert, with orientation to person, place and time. Behavior, mood, and affect are within normal limits. 04:38 Abdomen/GI: Inspection: abdomen appears normal, Bowel sounds: normal, in all quadrants, Palpation: mild abdominal tenderness, in the right upper quadrant, mass, is not appreciated, rebound tenderness, is not appreciated, voluntary guarding, is not appreciated, involuntary guarding, is not appreciated, no appreciated organomegaly, Rectal exam: the exam is deferred, because of patient request, Indicators: McBurney's point is not tender, Allen's sign is negative, Rovsing's sign is negative, Obturator sign is negative, Psoas sign is negative, Liver: no appreciated palpable abnormalities, Hernia: not appreciated. 04:38 Back: normal spinal alignment noted, CVA tenderness, that is moderate, is noted on the right, vertebral tenderness, is not appreciated, muscle spasm, is not present. Vital Signs: 04:13 BP 151 / 101; Pulse 65; Resp 18; Temp 98.3(O); Pulse Ox 100% on R/A; Weight 108.86 kg; lp1 Height 5 ft. 11 in. (180.34 cm); Pain 6/10; 05:26 BP 132 / 82; Pulse 42; Resp 16; Temp 97.9; Pulse Ox 98% 0 lpm ; Weight 108.86 kg; sv1 Height 5 ft. 11 in. (180.34 cm); Pain 7/10; 07:55 BP 118 / 80; Pulse 63; Resp 17; Pulse Ox 96% on R/A; tw2 05:26 Body Mass Index 33.47 (108.86 kg, 180.34 cm) sv1 MDM: 06:42 Differential diagnosis: nephrolithiasis, pyelonephritis, UTI, diverticulitis. Data [facility] reviewed: vital signs, nurses notes, lab test result(s), CBC, electrolytes, urinalysis. Data interpreted: Pulse oximetry: on room air is 98 %. Interpretation: normal. Counseling: I had a detailed discussion with the patient and/or guardian regarding: the historical points, exam findings, and any diagnostic results supporting the discharge/admit diagnosis, lab results, radiology results, the need for further work-up and treatment in the hospital. Response to treatment: the patient's symptoms have markedly improved after treatment. Physician consultation: Rolan Evans MD was contacted at 06:35, regarding patient's condition, and will see patient in inpatient room. 06:44 Patient medically screened. [facility] 06/14 04:19 Order name: Basic Metabolic Panel; Complete Time: : [facility] 06/14 04:19 Order name: CBC with Diff; Complete Time: 05:19 [facility] 06/14 04:19 Order name: Hepatic Function; Complete Time: : [facility] 06/14 04:19 Order name: Lipase; Complete Time: [facility] 06/14 05:04 Order name: Urine Dipstick-Ancillary; Complete Time: 05:19 EDMS 06/14 06:31 Order name: COVID-19 (Coronavirus) Document "Date of Onset" if Symptomatic [facility] 06/14 04:19 Order name: EKG; Complete Time: 04:19 [facility] 06/14 05:19 Order name: CT Abd/Pelvis - IV Contrast Only [facility] 06/14 06:32 Order name: CORONAVIRUS [facility] 06/14 07:46 Order name: SARS-COV-2 RT PCR [facility] 06/14 04:19 Order name: IV Saline Lock; Complete Time: 05:17 [facility] 06/14 04:19 Order name: Labs collected and sent; Complete Time: 05:17 [facility] 06/14 04:19 Order name: Urine Dipstick-Ancillary (obtain specimen); Complete Time: 05:17 [facility] 06/14 04:19 Order name: EKG - Nurse/Tech; Complete Time: 05:16 [facility] 06/14 06:51 Order name: NPO; Complete Time: 07:03 EDMS Administered Medications: 05:16 Drug: Zofran (Ondansetron) 4 mg Route: IVP; Site: right antecubital; sv1 05:32 Follow up: Response: Nausea is decreased sv1 05:16 Drug: NS 0.9% 1000 ml Route: IV; Rate: 1000 ml; Site: right antecubital; sv1 07:03 Follow up: IV Status: Completed infusion; IV Intake: 1000ml sv1 05:17 Drug: morphine 4 mg Route: IVP; Site: right antecubital; sv1 05:32 Follow up: Response: Pain is decreased sv1 07:26 Drug: Zosyn (piperacillin-tazobactam) 3.375 grams Route: IVPB; Infused Over: 60 mins; tw2 Site: right antecubital; 07:54 Follow up: IV Status: Infusion continued upon admission tw2 Disposition: 06:56 Co-signature as Attending Physician, Boris Diallo MD. [facility] Disposition Summary: 06/14/21 06:44 Hospitalization Ordered Hospitalization Status: Inpatient Admission [facility] Provider: Rolan Evans Alejo [facility] Condition: Stable [facility] Problem: new [facility] Symptoms: have improved [facility] Bed/Room Type: Standard [facility] Room Assignment: [facility] Diagnosis - Acute appendicitis [facility] Forms: - Medication Reconciliation Form [facility] - SBAR form [facility] Signatures: Dispatcher [employer] EDChristiana Metcalf RN RN lp1 Theo Worrell FNP-C KAYLEE-Elle Canela RN RN tw2 Boris Diallo MD MD 7 Pablo Cazares RN RN sv1
--- NOTE | 2021-06-14 06:45 | ER ---
Nurse's Notes [facility] Name: Ralf Crowley Age: 45 yrs Sex: Male : 1975 Arrival Date: 06/14/2021 Time: 04:05 Bed 13 Private MD: Diagnosis: Acute appendicitis Presentation: 06/14 04:14 Chief complaint: Patient states: " I have been this flank pain for a while now but I lp1 came in today because I just couldn't get comfortable tonight.". Coronavirus screen: Vaccine status: Patient reports receiving the 2nd dose of the covid vaccine. Moderna. Ebola Screen: Patient negative for fever greater than or equal to 101.5 degrees Fahrenheit, and additional compatible Ebola Virus Disease symptoms Patient denies exposure to infectious person. Patient denies travel to an Ebola-affected area in the 21 days before illness onset. Initial Sepsis Screen: Does the patient meet any 2 criteria? No. Patient's initial sepsis screen is negative. Does the patient have a suspected source of infection? No. Patient's initial sepsis screen is negative. Risk Assessment: Do you want to hurt yourself or someone else? Patient reports no desire to harm self or others. Onset of symptoms is unknown. 04:14 Method Of Arrival: Ambulatory lp1 04:14 Acuity: JOSTIN 3 lp1 Triage Assessment: 04:14 General: Appears in no apparent distress. Behavior is calm, cooperative, appropriate lp1 for age. Pain: Pain currently is 6 out of 10 on a pain scale. GI: Abdomen is non-distended. Historical: - Allergies: 04:11 No Known Allergies; la1 - Home Meds: 04:11 Lisinopril Oral [Active]; Propranolol Oral [Active]; la1 - PMHx: 04:17 Hypertensive disorder; la1 - Immunization history:: Client reports receiving the 2nd dose of the Covid vaccine. - Social history:: Smoking status: Patient denies any tobacco usage or history of. Screenin:18 Abuse screen: None. Nutritional screening: No deficits noted. Tuberculosis screening: sv1 No symptoms or risk factors identified. Fall Risk None identified. Assessment: 05:18 Reassessment: Labs collected, EKG done and urine dipped. The patient is bradycardic. sv1 Denbies shortness of breath. Appears comfortable. 05:20 Cardiovascular: Rhythm is sinus bradycardia. GI: GI: Bowel sounds present X 4 quads. sv1 07:55 Reassessment: Patient appears in no apparent distress at this time. No changes from tw2 previously documented assessment. Patient and/or family updated on plan of care and expected duration. Pain level reassessed. Patient is alert, oriented x 3, equal unlabored respirations, skin warm/dry/pink. Vital Signs: 04:13 BP 151 / 101; Pulse 65; Resp 18; Temp 98.3(O); Pulse Ox 100% on R/A; Weight 108.86 kg; lp1 Height 5 ft. 11 in. (180.34 cm); Pain 6/10; 05:26 BP 132 / 82; Pulse 42; Resp 16; Temp 97.9; Pulse Ox 98% 0 lpm ; Weight 108.86 kg; sv1 Height 5 ft. 11 in. (180.34 cm); Pain 7/10; 07:55 BP 118 / 80; Pulse 63; Resp 17; Pulse Ox 96% on R/A; tw2 05:26 Body Mass Index 33.47 (108.86 kg, 180.34 cm) sv1 ED Course: 04:05 Patient arrived in ED. ja2 04:07 Boris Diallo MD is Attending Physician. mh7 04:14 Arm band placed on. lp1 04:15 Triage completed. lp1 04:25 Pablo Cazares, RN is Primary Nurse. sv1 05:17 Basic Metabolic Panel Sent. sv1 05:17 Hepatic Function Sent. sv1 05:17 Lipase Sent. sv1 05:18 Patient has correct armband on for positive identification. Placed in gown. Bed in low sv1 position. Call light in reach. Side rails up X2. 05:18 Inserted saline lock: 20 gauge in left antecubital area, using aseptic technique. sv1 06:05 CT Abd/Pelvis - IV Contrast Only In Process Unspecified. EDMS 06:44 Rolan Evans MD is Hospitalizing Provider. mh7 07:03 CORONAVIRUS Sent. sv1 07:03 COVID-19 (Coronavirus) Document "Date of Onset" if Symptomatic Sent. sv1 07:17 Primary Nurse role handed off by Pablo Cazares, POLLY tw2 07:17 Elle Howard RN is Primary Nurse. tw2 07:55 No provider procedures requiring assistance completed. Patient admitted, IV remains in tw2 place. Administered Medications: 05:16 Drug: Zofran (Ondansetron) 4 mg Route: IVP; Site: right antecubital; sv1 05:32 Follow up: Response: Nausea is decreased sv1 05:16 Drug: NS 0.9% 1000 ml Route: IV; Rate: 1000 ml; Site: right antecubital; sv1 07:03 Follow up: IV Status: Completed infusion; IV Intake: 1000ml sv1 05:17 Drug: morphine 4 mg Route: IVP; Site: right antecubital; sv1 05:32 Follow up: Response: Pain is decreased sv1 07:26 Drug: Zosyn (piperacillin-tazobactam) 3.375 grams Route: IVPB; Infused Over: 60 mins; tw2 Site: right antecubital; 07:54 Follow up: IV Status: Infusion continued upon admission tw2 Intake: 07:03 IV: 1000ml; Total: 1000ml. sv1 Outcome: 06:44 Decision to Hospitalize by Provider. [facility] 07:55 Admitted to OR accompanied by nurse, via wheelchair, Report called to POLLY Mccoy tw2 07:55 Condition: stable 07:55 Instructed on the need for admit. 07:56 Patient left the ED. tw2 Signatures: Dispatcher [employer] EDMS Christiana Sheridan, RN RN lp1 Theo Worrell, BOTTLE GAUGER-C BOTTLE GAUGER-Cla1 Elle Howard RN RN tw2 Boris Diallo MD MD [facility] Shawna Roche Pablo Hitchcock RN RN sv1
[2021-06-14] MEDS ORDERED: ONDANSETRON 4 MG/2 ML VIAL IV PRN (06:48)
[2021-06-14] MEDS ORDERED: MORPHINE 4 MG/ML SYR IV PRN (06:48)
[2021-06-14] MEDS ORDERED: D5 0.45 NS 1,000 ML IV SCH (07:00)
[2021-06-14] MEDS ORDERED: PIPERACIL/TAZO 3.375 GM VIAL IV ONE (07:11)
[2021-06-14] MEDS ORDERED: NA CHLORIDE 0.9% 50 ML ONE (07:11)
[2021-06-14] MEDS ORDERED: ACETAMINOPHEN 325 MG TABLET PO PRN (07:34)
[2021-06-14] MEDS ORDERED: Ringers Lactate 1,000 ML IV ONE ×2 (08:04→10:20)
[2021-06-14] MEDS ORDERED: BUPIVACAINE 0.5% Inj,MDV 50 mL VIAL ONE (08:39)
[2021-06-14] MEDS ORDERED: FENTANYL CITR 100 MCG/2 ML ONE (08:59)
[2021-06-14] MEDS ORDERED: LIDOCAINE 1% MPF 5 ML VIAL ONE (08:59)
[2021-06-14] MEDS ORDERED: propofoL 200 MG/20 ML VIAL IV ONE (08:59)
[2021-06-14] MEDS ORDERED: MIDAZOLAM HCL 2 MG/2 ML INJ ONE (08:59)
[2021-06-14] MEDS ORDERED: ROCURONIUM 50 MG/5 ML VIAL IV ONE (09:00)
[2021-06-14] MEDS ORDERED: PIPER TAZO 3.375 GM in NA CHLORIDE 0.9% 100 ML IV SCH ×2 (09:00→17:00)
[2021-06-14] MEDS ORDERED: BUPIVACAINE 0.5% PF 10 ML VIAL ONE ×2 (09:27→09:28)
[2021-06-14] MEDS ORDERED: dexAMETHasone 10 MG/ML VIAL ONE (09:35)
[2021-06-14] MEDS ORDERED: KETOROLAC 30 MG/ML INJ ONE (09:53)
[2021-06-14] MEDS ORDERED: GLYCOPYRROLATE 0.2 MG/ML SYR ONE (10:02)
[2021-06-14] MEDS ORDERED: EPHEDRINE SULF 50 MG/ML VIAL ONE (10:11)
[2021-06-14] MEDS ORDERED: MORPHINE 10 MG/ML VIAL ONE (10:42)
[2021-06-14] MEDS: MORPHINE 4 MG/ML SYR ONE ×2 (11:02→11:31)
--- NOTE | 2021-06-14 11:59 | HP ---
Date of Admission: 06/14/2021 Diagnosis: Acute appendicitis. History Of Present Illness: This is a case of a 45-year-old patient who comes to us with 3 days' his tory of abdominal pain started on Saturday night after eating. It got worse for the next few days and t his morning, he decided to come to the ER, diagnosed with appendicitis and a surgical consult was obt ained for emergent surgery. He denies any trauma, dysuria, hematochezia, melena. Denies any recent travel out of the country. Denies any family member sick at home. Allergies: NONE. Medications: Lisinopril and propranolol. Medical History: Hypertension managed by Kathi Esparza, a nurse practitioner. Social Habits: He does not smoke. He does drink alcohol. Review of Systems: See H and P. Bloating, nausea, abdominal pain. 10 points otherwise unremarkable. Physical Examination: General: The patient is awake, alert. Eyes: Pupils are equal and reactive. Anicteric. Neck: Supple. Chest: Clear. Abdomen: Abdominal pain in the right lower quadrant and right mid quadrant. Guarding present. Extremities: Good capillary refill. Rectal: Deferred. Neuro: Cranial nerves 2-12 grossly in normal limits. Lab Data: WBC count is 9, hemoglobin of 14, platelets of 222, potassium 4.2, and lipase 77. CAT sca n of the abdomen and pelvis is consistent with acute appendicitis. Dilated appendix. Assessment: This is a 45-year-old patient with acute appendicitis. The benefits, alternatives, and risks of laparoscopic, possible open appendectomy were fully explained which include, but not limited to infection, bleeding, damage to adjacent structures as complication, abscess, MN, and even . He also understands this may not relieve the symptoms. He might need more than one surgical interve ntion. He understood, signed the consent. The patient was emergently booked in OR. YAMINI/NAOMY Voice ID: [id number]
[2021-06-14] MEDS ORDERED: CODEINE 30MG/APAP 300MG TAB ONE (12:00)
[2021-06-14 13:23] VITALS: BP 131/83; TEMP 97; O2SAT 96
--- NOTE | 2021-06-14 16:24 | RAD REPORT ---
EXAM DESCRIPTION: ADDENDUM #[address] Diallo via telephone by [facility] support June 14, 2021 6:31 AM central time. Electronically signed by: Tu Rapp DO 06/14/2021 6:32 AM [employer] PHOTO INSPECTOR End of Addendum EXAM DESCRIPTION: Abdomen Pelvis W Contrast CLINICAL HISTORY: 5 years Male, Abd pain;Flank pain COMPARISON: None TECHNIQUE Contiguous axial CT images of the abdomen and pelvis were obtained. Sagittal and coronal r eformats were reviewed. This exam was performed according to our departmental dose-optimization pro gram, which includes automated exposure control, adjustment of the mA and/or kV according to patient size and/or use of iterative reconstruction technique. FINDINGS: Lung bases: Clear. Liver: Unremarkable. No focal liver lesion. Gallbladder: Unremarkable. No gallstones. No gallbladder wall thickening or pericholecystic fluid. Spleen: Unremarkable Pancreas: Pancreas is unremarkable. Adrenal glands: Within normal limits. Kidneys/ureters: Within normal limits Stomach/small bowel/colon: Stomach is unremarkable. Small bowel is unremarkable. Colon is unremar kable. Appendix: Dilated appendix with wall thickening and surrounding inflammatory changes. Findings consis tent with acute appendicits. Peritoneum: No free fluid. Vascular structures: within normal limits Lymph nodes: No abnormal lymph nodes. Bladder: Unremarkable. Pelvic organs: No acute abnormality Bones: No acute osseous abnormality. Soft tissues: Unremarkable.. IMPRESSION: Acute appendicitis. Electronically signed by: Tu Rapp DO 06/14/2021 6:26 AM [employer] PHOTO INSPECTOR Due to temporary technical issues with the PACS/Fluency reporting system, reports are being signed by the in house radiologists without review as a courtesy to insure prompt reporting. The interpreting radiologist is fully responsible for the content of the report.
--- NOTE | 2021-06-14 18:55 | P.BOP ---
Preoperative diagnosis: acute appendicitis Postoperative diagnosis: same Primary procedure: Laparoscopic appendectomy Estimated blood loss: <10cc Specimen: [email or web address] Findings: as above Anesthesia: General Complications: None Transferred to: Recovery Room Condition: Good
--- NOTE | 2021-06-15 16:10 | OP ---
Date of Procedure: 06/14/2021 Surgeon: Rolan Evans MD Preoperative Diagnosis: Acute appendicitis. Postoperative Diagnosis: Acute appendicitis. Procedure: Laparoscopic appendectomy. Anesthesia: General plus local. Findings: Acute appendicitis. Indication: This is a case of a 45-year-old patient with 3 days' history of abdominal pain diagnosed with acute appendicitis, seen in ER, emergently scheduled in OR for laparoscopic possible open appen dectomy with benefits, alternatives, and risks explained to the patient, which include, but not limit ed to, infection, bleeding, damage to adjacent structures, anesthesia complication, abscess, [place], even . He also understands this may not relieve symptoms. He might need more than one surgical int ervention. He understood, signed a consent. Procedure In Detail: Patient was brought to the operating room, placed in supine position. Anesthes ia was done without complication. Abdominal area was prepped and draped in a usual sterile fashion. Marcaine 0.5% was injected for local anesthetic followed by sharp incision of the skin in the infrau mbilical region. The incision was carried down to fascia, which was opened under direct vision. Per itoneum was encountered, opened under direct vision. Vicryl #1 was placed inside the fascia. Liliana trocar was carefully introduced. Pneumoperitoneum was obtained. I placed 2 more trocars, 5 mm each one of them in the suprapubic area and left lower quadrant under direct visualization. This allowed me to visualize the area of the appendix. The appendix was noted to be inflamed and dilated. The b ase of the appendix seems to be spared from that, so we created a window in the base of the appendix, transected that with an Endo-CAROLYNE, and then after we transected that area, we proceeded to transect t he mesoappendix with the vascular version of it. No bowel leak. No bleeding. The appendix was dina diane from the abdominal cavity using an EndoCatch through the umbilical incision. Area was inspected once again. No bleeding. No bowel leak. At that moment, I proceeded to remove the trocars under di rect vision. Deflated pneumoperitoneum, closed the fascia with #1 Vicryl. Irrigated subcutaneous ti ssue, closed that with 3-0 chromic and then skin with tierney. Sponge count and instrument counts co rrect. The patient tolerated the procedure well. The patient is sent to recovery in stable conditio nJosesito KC/MODL Voice ID: [id number] Report ID: [id number]
--- NOTE | 2021-06-15 16:24 | DS ---
Date of Discharge: 06/14/2021 Diagnosis: Acute appendicitis. Procedure: Laparoscopic appendectomy. Disposition: Patient will be discharged home if he meets criteria. If he feels okay and may control his pain by pain medications by mouth, then he may be discharged home; otherwise, he will stay overn ight. If he gets discharge home, he was instructed and his the importance of followup in my off ice in 1 week and no heavy lifting of more than 20 pounds. To take his antibiotics as scheduled. Al so the pain medication was prescribed. Avoid constipation. Keep area dry for 48 hours, then may johan wer. Keep area intact without trauma. YAMINI/NAOMY Voice ID: [id number] Report ID: [id number]
== END 2021-06-14 13:00 | disposition home or self-care (01) ==
LOC: ER 04:02 → ERHOLD 06:59 → INTOOBSV 06:59
PROVIDERS: ADMIT Surgery; ATTEND Surgery
PROC: 0DTJ4ZZ Resection of Appendix, Percutaneous Endoscopic Approach (ICD-10-PCS; principal; 2021-06-14 12:00)
DX: K35.80 Unspecified acute appendicitis (principal); I10 Essential (primary) hypertension; Z20.822 Contact with and (suspected) exposure to COVID-19
CPT/HCPCS: 36415; 74177; 80048; 80076; 81003; 83690; 85025; 88304; 93005; 96361; 96365; 96375; 99285; G0378; J1100; J2250; J2405; J2543; J2704; J3010; J7030; J7120; Q9967; U0003

== ENCOUNTER 2022-08-17 05:59 | Emergency (ER) | payer BC ==
[2022-08-17] MEDS ORDERED: NA CHLORIDE 0.9% 1,000 ML ONE (06:45)
[2022-08-17] MEDS ORDERED: HYDROCODONE/APAP 5/325 MG TAB ONE (06:45)
[2022-08-17 06:54] LABS: Urine Blood Negative (Negative); Urine Glucose Negative (Negative); Urine Protein Negative (Negative)
[2022-08-17 07:19] LABS: Absolute Lymphocytes (CBC) 1.3 K/uL (0.7-4.9); Hematocrit 42.4 % (39.6-49.0); Lymphocytes % 27.1 % (15.3-44.8); MCV 85.8 fL (80-100); MPV 7.2 fL (7.6-11.3); RBC Red Blood Cell Count 4.94 M/uL (4.33-5.43)
[2022-08-17 07:21] LABS: Urine Bacteria None Seen /HPF (<20); Urine RBC <5 /HPF (None Seen)
[2022-08-17 07:41] LABS: Albumin 4.2 g/dL (3.4-5.0); Bilirubin Total 0.6 mg/dL (0.2-1.0); Protein, Total 7.9 g/dL (6.4-8.2)
--- NOTE | 2022-08-17 08:14 | RAD REPORT ---
EXAM DESCRIPTION: CT - Abdomen Pelvis W Contrast - 08/17/2022 7:59 am CLINICAL HISTORY: Right abdominal/ flank pain Abdominal pain for a few weeks. Worsened last night. COMPARISON: 06/14/2021 TECHNIQUE: Biphasic, helical CT imaging of the abdomen and pelvis was performed following intravenou s administration of 100 mL Isovue-300. Multiplanar reformats were generated and reviewed. All CT scans are performed using dose optimization technique as appropriate and may include automated exposure control or mA/KV adjustment according to patient size. FINDINGS: No suspicious findings in the lung bases. The liver, spleen, and pancreas show no suspicious findings. Gallbladder and biliary tree are also wi thout suspicious finding. Symmetric renal function is seen with no hydronephrosis or suspicious renal mass. Stable right lower pole fluid density 1.5 centimeter cyst, benign in appearance. No dilated bowel loops or bowel wall thickening. Suture line in the right lower quadrant probably rel ates to prior appendicectomy. Moderate stool accumulation in the rectal bulb. No free air, free fluid or inflammatory stranding. No hernia, mass or bulky lymphadenopathy. The urinary bladder is without significant finding. No suspicious bony findings. IMPRESSION: No acute abnormalities in the abdomen and pelvis. Moderate stool accumulation in the rec vianey bulb.
--- NOTE | 2022-08-17 08:30 | EDPHYS ---
Physician Documentation [facility] Name: Ralf Crowley Age: 46 yrs Sex: Male : 1975 Arrival Date: 08/17/2022 Time: 06:04 Bed 6 Private MD: Rian Oscar HPI: 08/17 07:44 This 46 yrs old Male presents to ER via Ambulatory with complaints of flank/abd pain. rn 07:44 The patient complains of pain in the right mid back and right low back. The pain rn radiates to the abdomen. Onset: The symptoms/episode began/occurred 3 week(s) ago. Modifying factors: The symptoms are alleviated by nothing. the symptoms are aggravated by movement. Severity of pain: At its worst the pain was moderate in the emergency department the pain is unchanged. The patient has not experienced similar symptoms in the past. The patient has not recently seen a physician. Historical: - Allergies: 06:22 No Known Allergies; vc1 - Home Meds: 06:22 amlodipine 5 mg oral tab 1 tab twice a day [Active]; Flomax 0.4 mg Oral cap 1 cap once vc1 daily [Active]; - PMHx: 06:22 Hypertensive disorder; vc1 - PSHx: 06:22 Appendectomy; vc1 - Immunization history:: Client reports receiving the 2nd dose of the Covid vaccine. - Social history:: Smoking status: Patient denies any tobacco usage or history of. - Family history:: not pertinent. - Hospitalizations: : No recent hospitalization is reported. ROS: 07:44 Constitutional: Negative for fever, chills, and weight loss, Cardiovascular: Negative rn for chest pain, palpitations, and edema, Respiratory: Negative for shortness of breath, cough, wheezing, and pleuritic chest pain, Abdomen/GI: + right flank and abd pain, negative for vomiting/diarrhea Back: + right lower back pain : Negative for injury, bleeding, discharge, and swelling, MS/Extremity: Negative for injury and deformity, Skin: Negative for injury, rash, and discoloration, Neuro: Negative for headache, weakness, numbness, tingling, and seizure. Exam: 07:44 Constitutional: This is a well developed, well nourished patient who is awake, alert, rn and in no acute distress. Head/Face: Normocephalic, atraumatic. Cardiovascular: Regular rate and rhythm. No pulse deficits. Respiratory: No increased work of breathing, no retractions or nasal flaring. Abdomen/GI: Soft, non-tender Back: No spinal tenderness. No costovertebral tenderness. Full range of motion. Skin: Warm, dry with normal turgor. Normal color with no rashes, no lesions, and no evidence of cellulitis. MS/ Extremity: Pulses equal, no cyanosis. Neurovascular intact. Full, normal range of motion. Equal circumference. Neuro: Awake and alert, GCS 15, oriented to person, place, time, and situation. Cranial nerves II-XII grossly intact. Motor strength 5/5 in all extremities. Sensory grossly intact. Vital Signs: 06:19 BP 149 / 98; Pulse 82; Resp 16; Temp 97.8; Pulse Ox 99% on R/A; Weight 104.33 kg; vc1 Height 5 ft. 11 in. (180.34 cm); Pain 5/10; 06:52 BP 138 / 79; Pulse 65; Resp 18; Pulse Ox 97% on R/A; as6 07:43 BP 138 / 85; Pulse 61; Resp 17; Pulse Ox 95% on R/A; ll1 06:19 Body Mass Index 32.08 (104.33 kg, 180.34 cm) vc1 MDM: 06:08 Patient medically screened. rn 08:26 Differential diagnosis: pyelonephritis, UTI, testicular torsion, diverticulitis, job pancreatitis. Data reviewed: vital signs, nurses notes, lab test result(s), radiologic studies, CT scan. Consideration of Admission/Observation Escalation of care including admission/observation considered. I considered the following discharge prescriptions or medication management in the emergency department Medications were administered in the Emergency Department. See MAR. Test considered but Not performed: Ultrasound testicular usg. Care significantly affected by the following chronic conditions: Hypertension. 08/17 06:27 Order name: CBC with Diff; Complete Time: 07:43 rn 08/17 06:27 Order name: CMP; Complete Time: 07:43 rn 08/17 06:27 Order name: Lipase; Complete Time: 07:43 rn 08/17 06:27 Order name: Urine Microscopic Only; Complete Time: 07:43 rn 08/17 06:27 Order name: CT Abd/Pelvis - IV Contrast Only; Complete Time: 08:25 rn 08/17 06:55 Order name: Urine Dipstick-Ancillary; Complete Time: 07:01 EDMS 08/17 06:27 Order name: IV Saline Lock; Complete Time: 06:45 rn 08/17 06:27 Order name: Labs collected and sent; Complete Time: 06:45 rn 08/17 06:27 Order name: Urine Dipstick-Ancillary (obtain specimen); Complete Time: 06:54 rn Administered Medications: 06:45 Drug: NS 0.9% 1000 ml Route: IV; Rate: 1 bolus; Site: right antecubital; kd3 07:45 Follow up: Response: No adverse reaction; IV Status: Completed infusion; IV Intake: hb 1000ml 06:45 Drug: HYDROcodone-acetaminophen 5 mg-325 mg 1 tabs Route: PO; kd3 08:48 Follow up: Response: No adverse reaction hb 08:48 Drug: Lactulose 30 grams Volume: 45 ml; Route: PO; hb 08:48 Follow up: Response: Medication administered at discharge. hb 08:48 Drug: Dulcolax (bisacodyl) Delayed Release Tablet 5 mg Route: PO; hb 08:48 Follow up: Response: Medication administered at discharge. hb Disposition Summary: 08/17/22 08:30 Discharge Ordered Location: Home job Problem: new job Symptoms: have improved job Condition: Stable job Diagnosis - Abdominal migraine, not intractable job - Constipation job Followup: job - With: Private Physician - When: 2 - 3 days - Reason: Recheck today's complaints, Continuance of care, Re-evaluation by your physician Discharge Instructions: - Discharge Summary Sheet job - Abdominal Pain, Adult job - Constipation, Adult job - Abdominal Pain, Adult, [id number] job Forms: - Medication Reconciliation Form job - Thank You Letter job - Antibiotic Education job - Prescription Opioid Use job Prescriptions: - Dulcolax (bisacodyl) 5 mg Oral tablet,delayed release (DR/EC) - take 1 tablet by ORAL route once daily; 20 tablet; Refills: 0, Product job Selection Permitted - Miralax - take 17 gram by ORAL route 1-2 times daily; 14 packet; Refills: 0, Product job Selection Permitted - dicyclomine 20 mg Oral Tablet - take 1 tablet by ORAL route 4 times per day; 28 tablet; Refills: 0, Product job Selection Permitted Signatures: Dispatcher [employer] Rian Burnette MD MD cha Nieto, Roman, MD MD rn Baxter, Heather, RN RN Ana Greer, RN RN kd3 Bess Wakefield RN RN vc1
--- NOTE | 2022-08-17 08:30 | ER ---
Nurse's Notes [facility] [place] Name: Ralf Crowley Age: 46 yrs Sex: Male : 1975 Arrival Date: 08/17/2022 Time: 06:04 Bed 6 Private MD: Diagnosis: Abdominal migraine, not intractable;Constipation Presentation: 08/17 06:19 Chief complaint: Patient states: "I have been having abdominal pain for the last few vc1 weeks. It got so bad last night I couldn't sleep". Coronavirus screen: Vaccine status: Patient reports receiving the 2nd dose of the covid vaccine. plus booster Moderna At this time, the client does not indicate any symptoms associated with coronavirus-19. Ebola Screen: Patient negative for fever greater than or equal to 101.5 degrees Fahrenheit, and additional compatible Ebola Virus Disease symptoms Patient denies exposure to infectious person. Patient denies travel to an Ebola-affected area in the 21 days before illness onset. No symptoms or risks identified at this time. Initial Sepsis Screen: Does the patient meet any 2 criteria? No. Patient's initial sepsis screen is negative. Does the patient have a suspected source of infection? No. Patient's initial sepsis screen is negative. Risk Assessment: Do you want to hurt yourself or someone else? Patient reports no desire to harm self or others. Onset of symptoms is unknown. 06:19 Method Of Arrival: Ambulatory vc1 06:19 Acuity: JOSTIN 3 vc1 Triage Assessment: 06:22 General: Appears in no apparent distress. uncomfortable, Behavior is calm, cooperative, vc1 appropriate for age. Pain: Complains of pain in right upper quadrant and right lower quadrant Pain radiates to right low back, left testicle and right testicle Pain currently is 5 out of 10 on a pain scale. EENT: No deficits noted. No signs and/or symptoms were reported regarding the EENT system. Neuro: Level of Consciousness is awake, alert, obeys commands, Oriented to person, place, time, situation, Appropriate for age. Cardiovascular: No deficits noted. Respiratory: Airway is patent Respiratory effort is even, unlabored, Respiratory pattern is regular, symmetrical. GI: Abdomen is flat, non-distended, Reports lower abdominal pain. : No deficits noted. No signs and/or symptoms were reported regarding the genitourinary system. Derm: No deficits noted. No signs and/or symptoms reported regarding the dermatologic system. Musculoskeletal: No deficits noted. No signs and/or symptoms reported regarding the musculoskeletal system. Historical: - Allergies: 06:22 No Known Allergies; vc1 - Home Meds: 06:22 amlodipine 5 mg oral tab 1 tab twice a day [Active]; Flomax 0.4 mg Oral cap 1 cap once vc1 daily [Active]; - PMHx: : Hypertensive disorder; vc1 - PSHx: 06:22 Appendectomy; vc1 - Immunization history:: Client reports receiving the 2nd dose of the Covid vaccine. - Social history:: Smoking status: Patient denies any tobacco usage or history of. - Family history:: not pertinent. - Hospitalizations: : No recent hospitalization is reported. Screenin:25 [facility] ED Fall Risk Assessment (Adult) History of falling in the last 3 months, vc1 including since admission No falls in past 3 months (0 pts) Confusion or Disorientation No (0 pts) Intoxicated or Sedated No (0 pts) Impaired Gait No (0 pts) Mobility Assist Device Used No (0 pt) Altered Elimination No (0 pt). Abuse screen: Denies threats or abuse. Nutritional screening: No deficits noted. Tuberculosis screening: No symptoms or risk factors identified. Assessment: 07:00 Reassessment: Report received from welder 2nd shift RN. ll1 08:49 Reassessment: Patient appears in no apparent distress at this time. Patient and/or hb family updated on plan of care and expected duration. Pain level reassessed. Patient is alert, oriented x 3, equal unlabored respirations, skin warm/dry/pink. 08:49 GI: hb Vital Signs: 06:19 BP 149 / 98; Pulse 82; Resp 16; Temp 97.8; Pulse Ox 99% on R/A; Weight 104.33 kg; vc1 Height 5 ft. 11 in. (180.34 cm); Pain 5/10; 06:52 BP 138 / 79; Pulse 65; Resp 18; Pulse Ox 97% on R/A; as6 07:43 BP 138 / 85; Pulse 61; Resp 17; Pulse Ox 95% on R/A; ll1 06:19 Body Mass Index 32.08 (104.33 kg, 180.34 cm) vc1 ED Course: 06:04 Patient arrived in ED. jj6 06:08 Aj Carmona MD is Attending Physician. rn 06:14 Kirby Rey, RN is Primary Nurse. as6 06:22 Triage completed. vc1 06:25 Arm band placed on right wrist. vc1 06:26 Patient has correct armband on for positive identification. Bed in low position. Call vc1 light in reach. Pulse ox on. NIBP on. 06:45 CBC with Diff Sent. kd3 06:45 CMP Sent. kd3 06:45 Lipase Sent. kd3 07:44 No provider procedures requiring assistance completed. ll1 08:01 CT Abd/Pelvis - IV Contrast Only In Process Unspecified. EDMS 08:04 Attending Physician role handed off by Aj Carmona MD cha 08:04 Rian Abel MD is Attending Physician. job Administered Medications: 06:45 Drug: NS 0.9% 1000 ml Route: IV; Rate: 1 bolus; Site: right antecubital; kd3 07:45 Follow up: Response: No adverse reaction; IV Status: Completed infusion; IV Intake: hb 1000ml 06:45 Drug: HYDROcodone-acetaminophen 5 mg-325 mg 1 tabs Route: PO; kd3 08:48 Follow up: Response: No adverse reaction hb 08:48 Drug: Lactulose 30 grams Volume: 45 ml; Route: PO; hb 08:48 Follow up: Response: Medication administered at discharge. hb 08:48 Drug: Dulcolax (bisacodyl) Delayed Release Tablet 5 mg Route: PO; hb 08:48 Follow up: Response: Medication administered at discharge. hb Medication: 06:26 VIS not applicable for this client. vc1 Intake: 07:45 IV: 1000ml; Total: 1000ml. hb Outcome: 08:30 Discharge ordered by . job 08:49 Discharged to home ambulatory. hb 08:49 Condition: stable 08:49 Discharge instructions given to patient, Instructed on discharge instructions, follow up and referral plans. medication usage, Demonstrated understanding of instructions, follow-up care, medications, Prescriptions given X 3. 08:49 Patient left the ED. hb Signatures: Dispatcher [employer] EDAR Rian Abel MD MD cha Nieto, Roman, MD MD rn Baxter, Heather, RN RN hb Lewis, Lynsay, RN RN ll1 Emmy Martin jj6 Kirby Rey RN RN as6 Ana Yoder, RN RN kd3 Bess Wakefield, RN RN vc1
[2022-08-17] MEDS ORDERED: BISACODYL E.C. 5 MG TAB PO ONE (08:47)
[2022-08-17] MEDS ORDERED: LACTULOSE 20 GM/30 ML UCUP ONE (08:48)
[2022-08-17 08:59] VITALS: TEMP 97.8
[2022-08-17 09:01] VITALS: BP 138/85; O2SAT 95
== END 2022-08-17 08:49 | disposition home or self-care (01) ==
LOC: ER 05:59
DX: G43.D0 Abdominal migraine, not intractable (principal); K59.00 Constipation, unspecified; I10 Essential (primary) hypertension
CPT/HCPCS: 85025; 36415; 83690; 80053; 74177; 96360; 99284; Q9967; J7030; 81003; 81015

== ENCOUNTER 2022-08-24 13:25 | Emergency (ER) | payer BC ==
[2022-08-24] MEDS ORDERED: NA CHLORIDE 0.9% 1,000 ML ONE (14:02)
[2022-08-24] MEDS ORDERED: FAMOTIDINE 20 MG/2 ML VIAL IV ONE (14:02)
[2022-08-24] MEDS ORDERED: KETOROLAC 30 MG/ML INJ ONE (14:02)
[2022-08-24 14:05] LABS: Absolute Lymphocytes (CBC) 1.5 K/uL (0.7-4.9); Hematocrit 42.3 % (39.6-49.0); Lymphocytes % 25.8 % (15.3-44.8); MPV 7.1 fL (7.6-11.3); RBC Red Blood Cell Count 4.98 M/uL (4.33-5.43)
[2022-08-24 14:22] LABS: Albumin 4.9 g/dL (3.4-5.0); Bilirubin Total 1.1 mg/dL (0.2-1.0); Potassium 4.1 mmol/L (3.5-5.1); Protein, Total 8.2 g/dL (6.4-8.2)
[2022-08-24 14:28] LABS: Urine Blood Negative (Negative); Urine Glucose Negative (Negative); Urine Protein Negative (Negative)
--- NOTE | 2022-08-24 14:32 | RAD REPORT ---
EXAM DESCRIPTION: USExtremity Venous Uni Ltd08/24/2022 2:20 pm CLINICAL HISTORY: left leg pain COMPARISON: None FINDINGS: Left common femoral, superficial femoral, greater saphenous, popliteal and posterior tibi al veins are compressible and demonstrate augmentation. Doppler demonstrates good flow. Grayscale, color and spectral analysis performed on all vessels IMPRESSION: No evidence of deep venous thrombosis involving the left lower extremity.
--- NOTE | 2022-08-24 14:49 | ER ---
Nurse's Notes [facility] [place] Name: Ralf Crowley Age: 46 yrs Sex: Male : 1975 Arrival Date: 08/24/2022 Time: 13:28 Bed 9 Private MD: Kathi Carlos Diagnosis: Left calf strain;Abdominal pain, Generalized Presentation: 08/24 13:45 Chief complaint: Patient states: Pain to lower left leg for 3 weeks. Over past three ld1 days pain has become worse. Coronavirus screen: At this time, the client does not indicate any symptoms associated with coronavirus-19. Ebola Screen: No symptoms or risks identified at this time. Initial Sepsis Screen: Does the patient meet any 2 criteria? No. Patient's initial sepsis screen is negative. Does the patient have a suspected source of infection? No. Patient's initial sepsis screen is negative. Risk Assessment: Do you want to hurt yourself or someone else? Patient reports no desire to harm self or others. Onset of symptoms was August 24, 2022. 13:45 Method Of Arrival: Ambulatory ld1 13:45 Acuity: JOSTIN 4 ld1 Triage Assessment: 13:46 General: Appears in no apparent distress. comfortable, Behavior is calm, cooperative, ld1 appropriate for age. Pain: Complains of pain in lateral aspect of left calf Pain does not radiate. Pain currently is 6 out of 10 on a pain scale. Quality of pain is described as throbbing, Pain began 2-3 days ago. Is intermittent. EENT: No signs and/or symptoms were reported regarding the EENT system. Neuro: Level of Consciousness is awake, alert, obeys commands, Oriented to person, place, time, situation. Respiratory: Airway is patent Respiratory effort is even, unlabored. GI: Abdomen is flat, non-distended. Historical: - Allergies: 13:46 No Known Allergies; ld1 - Home Meds: 13:46 Flomax 0.4 mg Oral cap 1 cap once daily [Active]; amlodipine 5 mg tab 1 tab twice a day ld1 [Active]; - PMHx: 13:46 Hypertensive disorder; ld1 - PSHx: 13:46 Appendectomy; ld1 - Immunization history:: Adult Immunizations up to date, Client reports receiving the 2nd dose of the Covid vaccine. - Social history:: Smoking status: Patient denies any tobacco usage or history of. Patient/guardian denies using alcohol. Screenin:39 [facility] ED Fall Risk Assessment (Adult) History of falling in the last 3 months, mb9 including since admission No falls in past 3 months (0 pts) Confusion or Disorientation No (0 pts) Intoxicated or Sedated No (0 pts) Impaired Gait No (0 pts) Mobility Assist Device Used No (0 pt) Altered Elimination No (0 pt) Score/Fall Risk Level 0 - 2 = Low Risk Oriented to surroundings, Maintained a safe environment, Educated pt \\T\\ family on fall prevention, incl call for assistance when getting out of bed. Abuse screen: Denies injuries from another. Abuse screen: Denies threats or abuse. Nutritional screening: No deficits noted. Tuberculosis screening: No symptoms or risk factors identified. Assessment: 13:59 Reassessment: pt taken to ultrasound via wheelchair. mb9 14:38 General: Appears in no apparent distress. comfortable, Behavior is calm, cooperative, mb9 appropriate for age. Pain: Complains of pain in lateral aspect of left calf Pain radiates to left leg Pain currently is 6 out of 10 on a pain scale. Quality of pain is described as "feels like a bruise" Pain began suddenly, Is intermittent, Aggravated by increased activity, weight bearing. Neuro: Level of Consciousness is awake, alert, obeys commands, Oriented to person, place, time, situation, Appropriate for age. Cardiovascular: Capillary refill < 3 seconds is brisk Patient's skin is warm and dry. Respiratory: Airway is patent Respiratory effort is even, unlabored, Respiratory pattern is regular, symmetrical. GI: Abdomen is round non-distended, Bowel sounds present X 4 quads. Abd is soft and non tender X 4 quads. Reports lower abdominal pain. : Urine is clear. Derm: Skin is pink, warm \\T\\ dry. Musculoskeletal: Range of motion: intact in all extremities, Reports pain in lateral aspect of left calf. 15:10 Reassessment: No changes from previously documented assessment. Patient and/or family mb9 updated on plan of care and expected duration. Pain level reassessed. Patient is alert, oriented x 3, equal unlabored respirations, skin warm/dry/pink. Patient states feeling better. Vital Signs: 13:45 BP 133 / 84; Pulse 62; Resp 18; Temp 97.9(TE); Pulse Ox 96% on R/A; Weight 102.06 kg; ld1 Height 5 ft. 11 in. (180.34 cm); Pain 6/10; 15:11 BP 130 / 82; Pulse 68; Resp 17; Pulse Ox 100% on R/A; mb9 13:45 Body Mass Index 31.38 (102.06 kg, 180.34 cm) ld1 ED Course: 13:28 Patient arrived in ED. mr 13:28 Kathi Carlos is Private Physician. mr 13:30 Bed in low position. Call light in reach. Side rails up X 1. Client placed on mb9 continuous cardiac and pulse oximetry monitoring. NIBP monitoring applied. monitor tech on. 13:32 Emmy Nieto FNP is PHCP. jh7 13:32 Lamin Bethea DO is Attending Physician. jh7 13:46 Triage completed. ld1 13:46 Arm band placed on right wrist. ld1 13:55 Judy Singh RN is Primary Nurse. mb9 13:56 Initial lab(s) drawn, by dc, sent to lab. Inserted saline lock: 20 gauge in left tm3 antecubital area, using aseptic technique. 14:34 Urine collected: clean catch specimen, clear. tm3 14:48 Kathi Carlos is Referral Physician. jh7 14:48 Joseph Alicea MD is Referral Physician. jh7 15:11 No provider procedures requiring assistance completed. IV discontinued, intact, mb9 bleeding controlled, No redness/swelling at site. Pressure dressing applied. Administered Medications: 14:25 Drug: Pepcid (famotidine) 20 mg Route: IVP; Site: left antecubital; mb9 14:37 Drug: NS 0.9% 1000 ml Route: IV; Rate: 1 bolus; Site: left antecubital; mb9 14:37 Drug: TORadol - (ketorolac) 15 mg Route: IVP; Site: left antecubital; mb9 Medication: 14:40 VIS not applicable for this client. mb9 Outcome: 14:49 Discharge ordered by . jh7 15:14 Discharged to home ambulatory. mb9 15:14 Condition: stable 15:14 Discharge instructions given to patient, Instructed on discharge instructions, follow up and referral plans. Demonstrated understanding of instructions, follow-up care, medications, Prescriptions given X 2. 15:14 Patient left the ED. mb9 Signatures: Dio Burdick Mary mr Dibbern, Lauren, RN RN ld1 Emmy Nieto, REPAIRER SHOE STICKS REPAIRER SHOE STICKS jh7 Judy Singh RN RN mb9
--- NOTE | 2022-08-24 14:49 | EDPHYS ---
Physician Documentation [facility] [place] Name: Ralf Crowley Age: 46 yrs Sex: Male : 1975 Arrival Date: 08/24/2022 Time: 13:28 Bed 9 Private MD: Kathi Carlos ED Physician Lamin Bethea HPI: 08/24 13:35 This 46 yrs old Male presents to ER via Ambulatory with complaints of Leg Pain, jh7 Abdominal Pain. 13:35 The patient presents with pain, that is acute. The complaints affect the lateral aspect jh7 of left calf. Onset: The symptoms/episode began/occurred 3 week(s) ago, and became worse. 46-year-old male presents with left calf pain worsening over the past 3 weeks and chronic abdominal pain. Patient reports that he had a recent normal colonoscopy and a negative CT on Saturday. Reports that he has been taking laxatives for IBS and feels dehydrated. Patient of Dr. Carlos.. Historical: - Allergies: 13:46 No Known Allergies; ld1 - Home Meds: 13:46 Flomax 0.4 mg Oral cap 1 cap once daily [Active]; amlodipine 5 mg tab 1 tab twice a day ld1 [Active]; - PMHx: 13:46 Hypertensive disorder; ld1 - PSHx: 13:46 Appendectomy; ld1 - Immunization history:: Adult Immunizations up to date, Client reports receiving the 2nd dose of the Covid vaccine. - Social history:: Smoking status: Patient denies any tobacco usage or history of. Patient/guardian denies using alcohol. ROS: 13:35 Constitutional: Negative for fever, chills, and weight loss, Eyes: Negative for injury, jh7 pain, redness, and discharge, ENT: Negative for injury, pain, and discharge, Neck: Negative for injury, pain, and swelling, Cardiovascular: Negative for chest pain, palpitations, and edema, Respiratory: Negative for shortness of breath, cough, wheezing, and pleuritic chest pain, Back: Negative for injury and pain, MS/Extremity: Negative for injury and deformity, Skin: Negative for injury, rash, and discoloration, Neuro: Negative for headache, weakness, numbness, tingling, and seizure. 13:35 Abdomen/GI: Positive for abdominal pain, Negative for nausea, vomiting, and diarrhea, constipation. 13:35 MS/extremity: Positive for pain, of the lateral aspect of left calf, Negative for injury or acute deformity, decreased range of motion, swelling. 13:35 All other systems are negative. Exam: 13:35 Constitutional: This is a well developed, well nourished patient who is awake, alert, jh7 and in no acute distress. Head/Face: Normocephalic, atraumatic. Eyes: Pupils equal round and reactive to light, extra-ocular motions intact. Lids and lashes normal. Conjunctiva and sclera are non-icteric and not injected. Cornea within normal limits. Periorbital areas with no swelling, redness, or edema. ENT: Nares patent. No nasal discharge, no septal abnormalities noted. Tympanic membranes are normal and external auditory canals are clear. Oropharynx with no redness, swelling, or masses, exudates, or evidence of obstruction, uvula midline. Mucous membranes moist. Neck: Trachea midline, no thyromegaly or masses palpated, and no cervical lymphadenopathy. Supple, full range of motion without nuchal rigidity, or vertebral point tenderness. No Meningismus. Cardiovascular: Regular rate and rhythm with a normal S1 and S2. No gallops, murmurs, or rubs. Normal PMI, no JVD. No pulse deficits. Respiratory: Lungs have equal breath sounds bilaterally, clear to auscultation and percussion. No rales, rhonchi or wheezes noted. No increased work of breathing, no retractions or nasal flaring. Abdomen/GI: Soft, non-tender, with normal bowel sounds. No distension or tympany. No guarding or rebound. No evidence of tenderness throughout. Back: No spinal tenderness. No costovertebral tenderness. Full range of motion. Skin: Warm, dry with normal turgor. Normal color with no rashes, no lesions, and no evidence of cellulitis. Neuro: Awake and alert, GCS 15, oriented to person, place, time, and situation. Motor strength 5/5 in all extremities. Sensory grossly intact. Normal gait. 13:35 Musculoskeletal/extremity: ROM: intact in all extremities, Circulation is intact in all extremities. Pulses: are normal with no appreciated deficits, noted to be 3+ in the left popliteal artery and left dorsalis pedis artery, Sensation intact. Calves: have equal circumference, are tender, on left. Vital Signs: 13:45 BP 133 / 84; Pulse 62; Resp 18; Temp 97.9(TE); Pulse Ox 96% on R/A; Weight 102.06 kg; ld1 Height 5 ft. 11 in. (180.34 cm); Pain 6/10; 15:11 BP 130 / 82; Pulse 68; Resp 17; Pulse Ox 100% on R/A; mb9 13:45 Body Mass Index 31.38 (102.06 kg, 180.34 cm) ld1 MDM: 13:32 Patient medically screened. [facility] 14:50 Differential diagnosis: contusion, tendonitis, DVT, muscle strain, chronic abdominal [facility] pain, IBS. Data reviewed: vital signs, nurses notes, lab test result(s), radiologic studies, ultrasound. I considered the following discharge prescriptions or medication management in the emergency department Medications were administered in the Emergency Department. See MAR. Test considered but Not performed: CT: recent abdominal CT which is negative, abdominal pain has not worsened. Care significantly affected by the following chronic conditions: Hypertension. 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 Response to treatment: the patient's symptoms have markedly improved after treatment. 08/24 13:43 Order name: US Extremity Venous Unilateral Ltd [facility] 08/24 13:43 Order name: CBC with Diff [facility] 08/24 13:43 Order name: CMP [facility] 08/24 13:43 Order name: Lipase [facility] 08/24 13:43 Order name: IV Saline Lock; Complete Time: 14:37 [facility] 08/24 13:43 Order name: Labs collected and sent; Complete Time: 14:37 [facility] 08/24 13:43 Order name: Urine Dipstick-Ancillary (obtain specimen); Complete Time: 14:37 [facility] 08/24 14:23 Order name: Comprehensive Metabolic Panel; Complete Time: 14:25 [facility] 08/24 14:23 Order name: Lipase; Complete Time: 14:25 [facility] 08/24 14:28 Order name: CBC with Automated Diff; Complete Time: 14:43 [facility] 08/24 14:29 Order name: Urine Dipstick-Ancillary; Complete Time: 14:43 [facility] 08/24 14:33 Order name: US; Complete Time: 14:43 [facility] Administered Medications: 14:25 Drug: Pepcid (famotidine) 20 mg Route: IVP; Site: left antecubital; mb9 14:37 Drug: NS 0.9% 1000 ml Route: IV; Rate: 1 bolus; Site: left antecubital; mb9 14:37 Drug: TORadol - (ketorolac) 15 mg Route: IVP; Site: left antecubital; mb9 Disposition: 19:06 Co-signature as Attending Physician, Lamin Bethea DO I was immediately available on-site ms3 in the Emergency Department for consultation in the care of the patient. Disposition Summary: 08/24/22 14:49 Discharge Ordered Location: Home jh Problem: new [facility] Symptoms: are unchanged jh7 Condition: Stable jh7 Diagnosis - Left calf strain 7 - Abdominal pain, Generalized jh7 Followup: [facility] - With: Kathi Carlos - When: 2 - 3 days - Reason: Recheck today's complaints Followup: [facility] - With: Joseph Alicea MD - When: 2 - 3 days - Reason: Recheck today's complaints Discharge Instructions: - Discharge Summary Sheet 7 - Abdominal Pain, Adult jh7 - Muscle Cramps and Spasms [facility] Forms: - Medication Reconciliation Form jh7 - Thank You Letter jh7 - Work release form mb9 Prescriptions: - Zanaflex 4 mg Oral Tablet - take 1 tablet by ORAL route every 8 hours As needed; 20 tablet; Refills: 0, jh7 Product Selection Permitted - Levsin 0.125 mg Oral Tablet - take 1 tablet by ORAL route every 8 hours; 30 tablet; Refills: 0, Product [facility] Selection Permitted Signatures: Dispatcher [employer] [facility]VA Lamin Bethea DO DO ms3 Cassandra Ventura RN RN ld1 Emmy Nieto, CRATE BUILDER CRATE BUILDER jh7 Judy Singh RN RN mb9
[2022-08-24 15:52] VITALS: TEMP 97.9
[2022-08-24 15:53] VITALS: BP 130/82; O2SAT 100
== END 2022-08-24 15:14 | disposition home or self-care (01) ==
LOC: ER 13:25
DX: S86.912A Strain of unspecified muscle(s) and tendon(s) at lower leg level, left leg, initial encounter (principal); R10.84 Generalized abdominal pain; I10 Essential (primary) hypertension
CPT/HCPCS: 85025; 36415; 81003; 83690; 80053; 93971; 96375; 96374; 99284; J7030